=== PATIENT | female | born 1975 | race Caucasian/White ===

== ENCOUNTER → 2016-07-07 | Outpatient (CLI) | payer OTHER ==
[2016-07-07 16:22] LABS: ALANINE AMINOTRANSFERASE 24 U/L (9-52); ALBUMIN 4.3 g/dL (3.5-5.0); ALKALINE PHOSPHATASE 47 U/L (38-126); ASPARTATE AMINO TRANSFERASE 18 U/L (14-36); BILIRUBIN,DIRECT 0.1 mg/dL (0.0-0.4); BILIRUBIN,TOTAL 0.5 mg/dL (0.2-1.3); TOTAL PROTEIN 7.3 g/dL (6.3-8.2)
== END ==
LOC: OD 15:29
PROVIDERS: ATTEND Physician Assistant Surgical
DX: K80.20 Calculus of gallbladder without cholecystitis without obstruction (principal)
CPT/HCPCS: 36415; 80076

== ENCOUNTER 2016-07-29 10:21 | Day surgery (SDC) | payer BC, OTHER ==
[2016-07-22 09:29] LABS: HEMATOCRIT 41.1 % (36.0-47.0); HEMOGLOBIN 13.8 g/dL (12.0-15.5); HGB HCT DIFFERENCE 0.3; MEAN CORPUSCULAR HEMOGLOBIN 31.6 pg (27.0-33.4); MEAN CORPUSCULAR HGB CONC 33.7 g/dL (32.0-36.0); MEAN CORPUSCULAR VOLUME 94 fl (80-97); RED BLOOD COUNT 4.38 10^6/uL (3.72-5.28); RED CELL DISTRIBUTION WIDTH 13.2 % (11.5-14.0); WHITE BLOOD COUNT 4.1 10^3/uL (4.0-10.5)
[2016-07-22 09:57] LABS: ALBUMIN 4.3 g/dL (3.5-5.0); AMYLASE 74 U/L (30-110); ANION GAP 10 (5-19); BLOOD UREA NITROGEN 8 mg/dL (7-20); CARBON DIOXIDE 26 mmol/L (22-30); CHLORIDE 105 mmol/L (98-107); CREATININE RESULT 0.72 mg/dL (0.52-1.25); GLUCOSE 81 mg/dL (75-110); POTASSIUM 4.1 mmol/L (3.6-5.0); SODIUM 141.2 mmol/L (137-145); TOTAL PROTEIN 7.4 g/dL (6.3-8.2)
[2016-07-22 09:58] LABS: ALANINE AMINOTRANSFERASE 24 U/L (9-52); ALKALINE PHOSPHATASE 42 U/L (38-126); ASPARTATE AMINO TRANSFERASE 18 U/L (14-36); BILIRUBIN,DIRECT 0.1 mg/dL (0.0-0.4); BILIRUBIN,TOTAL 0.5 mg/dL (0.2-1.3); CALCIUM 9.5 mg/dL (8.4-10.2)
--- NOTE | 2016-07-22 22:08 | EKG REPORT ---
SEVERITY:- NORMAL ECG - SINUS RHYTHM : Confirmed by: Nicky Fierro MD 22-Jul-2016 22:07:58
[~2016-07-29 10:21] MED LIST: ACETAMINOPHEN 325 MG TABLET PO PRN; BUPIVACAINE HCL 0.25 % INJ/PF (2.5 MG/1 ML) 30 ML VIAL ONE; CIPROFLOXACIN 400 MG/D5W RTU 400 MG/200 ML RTUPB IV PRN; LACTATED RINGERS 1000 ML IV PRN
[2016-07-29] MEDS ORDERED: MIDAZOLAM 2 MG/2 ML INJ ONE ×2 (11:22→12:32)
[2016-07-29] MEDS ORDERED: FENTANYL CITRATE INJ/PF 250 MCG/5 ML AMPULE ONE (12:32)
[2016-07-29] MEDS ORDERED: PROPOFOL INJ 200 MG/20 ML VIAL IV ONE (12:32)
[2016-07-29] MEDS ORDERED: FENTANYL CITRATE INJ/PF 100 MCG/2 ML AMPUL IV PRN ×3 (13:03)
[2016-07-29] MEDS ORDERED: MORPHINE SULFATE 10 MG/ML INJ IV PRN (13:03)
[2016-07-29] MEDS ORDERED: DIPHENHYDRAMINE HCL 50 MG/ML VIAL IV PRN (13:03)
[2016-07-29] MEDS ORDERED: MEPERIDINE HCL/PF INJ 25 MG/1 ML DISP.SYRIN IV PRN (13:03)
[2016-07-29] MEDS ORDERED: PROMETHAZINE HCL INJ 25 MG/1 ML VIAL IV PRN ×2 (13:03)
[2016-07-29] MEDS ORDERED: OXYCODONE-ACETAMINOPHEN 5-325 MG TABLET PO PRN ×2 (13:03)
--- NOTE | 2016-07-29 13:24 | Operative Report ---
Operative Report DATE OF SURGERY: 07/29/16 PREOPERATIVE DIAGNOSIS: Symptomatic cholelithiasis with cholecystitis POSTOPERATIVE DIAGNOSIS: Same OPERATION: Laparoscopic cholecystectomy SURGEON: HOLLY CYR ANESTHESIA: GA TISSUE REMOVED OR ALTERED: one GB COMPLICATIONS: none ESTIMATED BLOOD LOSS: scant INTRAOPERATIVE FINDINGS: see below PROCEDURE: After obtaining informed consent, the patient was taken to the operating room. General Anesthesia was induced; the arms were extended, and the abdomen was exposed, and prepped and draped in a sterile fashion. Instrumentation was set up for laparoscopic cholecystectomy. Surgical plan and surgical timeout were conducted. A vertical incision was made above the umbilicus, and a verres needle was inserted uneventfully into the peritoneal cavity. Pneumoperitoneum was established. The verres needle was removed and a 5 mm trocar was inserted and a 5 mm flexible laparoscope was inserted. Visualization of the peritoneal cavity confirmed safe uneventful entry. Under direct visualization 3 additional 5 mm ports were established, one in the subxiphoid position and second in the subcostal position. Visualization of the hepatobiliary anatomy revealed no anatomic variations. A grasper was placed on the fundus of the gallbladder and the gallbladder is elevated over the right surface of the liver; a second grasper was used to grasp the infundibulum of the gallbladder. The neck of the gallbladder and junction with the cystic duct was dissected out. The Cystic artery was in its usual location medial and cephalad to the cystic duct. The cystic artery was surrounded with a right angle clamp, clipped twice proximally and divided with laparoscopic scissors. We now opened the triangle of Calot by dividing the peritoneal reflection on both the medial and lateral sides of the cystic duct infundibular junction. The critical view was obtained. We now milked the cystic duct of any possible stones, clipped the cystic duct approximately 2 times once distally and divided with scissors. The gallbladder was now removed from the undersurface of the liver using hook cautery dissection. Graspers were repositioned and the gallbladder was removed uneventfully from the abdominal cavity through the super umbilical port site incision. The specimen was examined, then passed off to pathology for permanent analysis. We returned to the peritoneal cavity check for bleeding, and evidence of bile leak, and there was none. We Confirmed satisfactory placement of clips on cystic duct and cystic artery were secured . At this point we felt the operation was complete. The subcutaneous tissue was then anesthetized with quarter percent Marcaine Sponge and needle counts are correct. All ports removed under direct visualization pneumoperitoneum evacuated, and 5 mm port wounds closed with 3-0 Vicryl suture, benzoin and Steri-Strips. The patient was extubated, and taken to the recovery room in stable condition.
--- NOTE | 2016-07-29 13:25 | Operative Report ---
Operative Report DATE OF SURGERY: 07/29/16 PREOPERATIVE DIAGNOSIS: Symptomatic cholelithiasis with cholecystitis POSTOPERATIVE DIAGNOSIS: Same OPERATION: Laparoscopic cholecystectomy SURGEON: HOLLY CYR ANESTHESIA: GA TISSUE REMOVED OR ALTERED: one GB ESTIMATED BLOOD LOSS: scant INTRAOPERATIVE FINDINGS: see below
--- NOTE | 2016-07-29 13:27 | PDOC DISCHARGE SUMMARY ---
Discharge Summary (SDC) - Discharge Final Diagnosis: Symptomatic cholelithiasis with cholecystitis Date of Surgery: 07/29/16 Discharge Date: 07/29/16 Condition: Good Treatment or Instructions: [facility] [address] [place] [id number] Discharge Instructions: Laparoscopic Surgery 1. General Information: a. DO NOT DRIVE a car or operate dangerous machinery for 3-4 days or while taking narcotic pain pills. b. DO NOT consume alcohol, tranquilizers, sleeping medications or any non- prescribed medications for 24 hours unless approved by your doctor or as long as taking narcotic prescription medications. c. DO NOT make important decisions or sign any important papers for the first 24 hours after surgery. d. When discharged home the same day of surgery have a responsible person with you for the first night. 2. Activity Restrictions: 2 weeks. a. NO heavy lifting, straining abdominal muscles, bending over a lot, yard work, house work, or sports for [address] for 3-4 days or while taking toradol. c. It is fine to go for walks, up and down steps, ride in a car. d. Elevate your head when sleeping/resting. 3. Treatment: a. You may shower 24 hours after surgery, no baths or swimming for 2 weeks. Remove band-aids or dressings before shower but leave paper strips (steri-strips ) on the skin to fall off on their own. If still on at postoperative visit they will be removed then. b. Drainage of fluid or blood is not unusual from an incision. If occurs, you can clean with peroxide and cotton ball daily and cover with dry gauze until the wound seals. c. If a lot of bleeding occurs, you can hold pressure with a gauze or cloth over the site for 10 minutes and it will usually stop. If bleeding continues you will need to call for possible evaluation in office or emergency room. 4. Medications: a. . You may switch to plain Tylenol, Advil or Aleve as you transition from the narcotic. Many adults find good pain relief with Advil 600-800 mg three times a day with meals. This can cause indigestion, ulcers, and kidney problems with long-term use. b. You should resume all normal medications unless a change is specified by your doctors. c. Begin with clear liquids and may progress to your normal diet if not nauseated. No high fat, high protein foods the day of surgery. Normal diet 6. The following may occur after laparoscopic surgery: a. Shoulder or upper back ache from retained gas that should resolve in 1-2 days b. Soreness and bruising at incision sites will resolve with time. c. Scrotal swelling (labia in women) and bruising is often seen after hernia surgery. d. Sore throat e. Fatigue may last days to weeks. f. Difficulty urinating may occur and may need to come into emergency room for urinary catheter placement. 7. Notify Physician If: a. Worsening or pain not improved with pain medication b. Persistent nausea and vomiting c. Fever above 101 d. Persistent bleeding or swelling at operative site e. Unable to urinate and uncomfortable bladder 6-8 hours after surgery 8..Follow Up Care: a. Schedule a follow up appointment with your doctor for 2 weeks. In the event of any postoperative problems or questions or you may call the office during business hours or the On-Call physician evenings and weekends at [facility]. [facility] I understand the instructions for my postoperative care as described above and a copy has been given to me. Patient/Significant Other Witness Date Prescriptions: Ketorolac Tromethamine [Toradol 10 mg Tablet] 10 mg PO Q6HP PRN #14 tablet PRN Reason: Discharge Activity: Activity As Tolerated Home Care Assistance: None Needed Report the Following to Your Physician Immediately: Shortness of Breath, Increase in Pain, Fever over 101 Degrees
[2016-07-29] MEDS ORDERED: ONDANSETRON HCL INJ/PF 4 MG/2 ML SDV ONE (13:55)
[2016-07-29] MEDS ORDERED: HYDROMORPHONE HCL INJ/PF 2 MG/ML AMPULE ONE (14:51)
[2016-07-29 17:20] VITALS: BP 100/63
== END 2016-07-29 17:10 | disposition home or self-care (01) ==
LOC: OROUT 10:21
PROVIDERS: ATTEND Surgery
PROC: 0FT44ZZ Resection of Gallbladder, Percutaneous Endoscopic Approach (ICD-10-PCS; principal; 2016-07-29 12:30)
DX: K80.10 Calculus of gallbladder with chronic cholecystitis without obstruction (principal); Z88.0 Allergy status to penicillin; Z79.899 Other long term (current) drug therapy
CPT/HCPCS: 93005; 36415; 82962; 82150; 85027; 81025; 80076; 80048; 93010; 47562; J2250; J3010; J1170; J2405; J2704; J0744; 88304

== ENCOUNTER → 2018-03-30 | Outpatient (CLI) | payer BC ==
[2018-03-30 12:06] LABS: ALANINE AMINOTRANSFERASE 15 U/L (9-52); ALBUMIN 4.3 g/dL (3.5-5.0); ALKALINE PHOSPHATASE 45 U/L (38-126); ANION GAP 11 (5-19); ASPARTATE AMINO TRANSFERASE 17 U/L (14-36); BILIRUBIN,DIRECT 0.2 mg/dL (0.0-0.4); BILIRUBIN,TOTAL 0.3 mg/dL (0.2-1.3); BLOOD UREA NITROGEN 9 mg/dL (7-20); CALCIUM 9.5 mg/dL (8.4-10.2); CARBON DIOXIDE 24 mmol/L (22-30); CHLORIDE 107 mmol/L (98-107); GLUCOSE 109 mg/dL (75-110); POTASSIUM 3.9 mmol/L (3.6-5.0); SODIUM 141.5 mmol/L (137-145); TOTAL PROTEIN 7.5 g/dL (6.3-8.2)
[2018-03-30 12:14] LABS: PREALBUMIN 31.5 mg/dL (17.6-36.0)
[2018-03-30 12:17] LABS: C-REACTIVE PROTEIN < 5.0 mg/L (<10.0)
== END ==
LOC: OD 10:59
PROVIDERS: ATTEND Family Medicine
DX: M54.2 Cervicalgia (principal)
CPT/HCPCS: 36415; 80053; 84134; 84443; 85652; 86140

== ENCOUNTER → 2020-02-21 | Outpatient (CLI) | payer BC | LOC: OD 15:17 | PROVIDERS: ATTEND Plastic Surgery | DX: D23.5 Other benign neoplasm of skin of trunk (principal); Z86.03 Personal history of neoplasm of uncertain behavior | CPT/HCPCS: 88305 ==